=== PATIENT | male | born 1965 | race American Indian/Alaskan Native ===

== ENCOUNTER 2017-02-26 16:23 | Emergency (ER) | payer OTHER ==
[2017-02-26] MEDS ORDERED: BOOSTRIX IM ONE (18:20)
[2017-02-26] MEDS ORDERED: NACL 0.9% IR ONE (18:20)
[2017-02-26] MEDS ORDERED: MOTRIN PO ONE (18:21)
--- NOTE | 2017-02-26 18:33 | Emergency Department Report ---
ED Extremity Problem HPI - General Chief complaint: Wound/Laceration Stated complaint: LAC RT ARM Time Seen by Provider: 02/26/17 18:15 Source: patient Mode of arrival: Ambulatory Limitations: No Limitations - History of Present Illness Initial comments: PT states he was rough housing with his brother and he fell on a vase. PT states the vase broke and he cut his arm. PT states he got worried when he was picking pieces of glass out of his arm. PT unsure if his TD vaccines is UTD Complaint: other (arm injury ) Onset/Timin -: Sudden, hour(s) Location: right History of Same: No Severity scale (0 -10): 0 Consistency: constant Improves with: nothing Associated Symptoms: denies other symptoms - Related Data Previous Rx's Medication Instructions Recorded Last Taken Type Acetaminophen/Codeine [Tylenol #3] 1 tab PO Q6H PRN #12 tab 02/26/17 Unknown Rx Cephalexin [Keflex] 500 mg PO Q6HR #40 capsule 02/26/17 Unknown Rx Allergies Allergy/AdvReac Type Severity Reaction Status Date / Time No Known Allergies Allergy Verified 02/26/17 16:49 ED Review of Systems ROS: Stated complaint: LAC RT ARM Other details as noted in HPI Comment: All other systems reviewed and negative Cardiovascular: denies: chest pain Gastrointestinal: other. denies: abdominal pain, nausea, vomiting Musculoskeletal: as per HPI Skin: as per HPI Neurological: denies: numbness, paresthesias ED Past Medical Hx - Past Medical History Previous Medical History?: No - Surgical History Past Surgical History?: No - Family History Family history: no significant - Social History Smoking Status: Current Every Day Smoker Substance Use Type: Alcohol - Medications Home Medications: Home Medications Medication Instructions Recorded Confirmed Last Taken Type Acetaminophen/Codeine [Tylenol #3] 1 tab PO Q6H PRN #12 tab 02/26/17 Unknown Rx Cephalexin [Keflex] 500 mg PO Q6HR #40 capsule 02/26/17 Unknown Rx ED Physical Exam - General Limitations: No Limitations General appearance: alert, in no apparent distress - Head Head exam: Present: atraumatic, normocephalic, normal inspection - Eye Eye exam: Present: normal appearance. Absent: conjunctival injection - ENT ENT exam: Present: normal exam, normal external ear exam - Neck Neck exam: Present: normal inspection, full ROM. Absent: tenderness - Respiratory Respiratory exam: Present: normal lung sounds bilaterally. Absent: respiratory distress - Cardiovascular Cardiovascular Exam: Present: regular rate, normal rhythm - GI/Abdominal GI/Abdominal exam: Present: soft. Absent: tenderness - Extremities Exam Extremities exam: Present: full ROM, tenderness - Expanded Upper Extremity Exam Right Shoulder Exam: Present: normal inspection, full ROM. Absent: tenderness Upper Arm exam: Present: tenderness, swelling, laceration, ecchymosis. Absent: crepidus, erythema Elbow exam: Present: normal inspection, full ROM. Absent: tenderness Vascular: Present: normal capillary refill, radial pulse. Absent: vascular compromise - Back Exam Back exam: Present: normal inspection - Neurological Exam Neurological exam: Present: alert, oriented X3 - Psychiatric Psychiatric exam: Present: normal affect, normal mood - Skin Skin exam: Present: warm, dry, other ED Course Vital Signs 02/26/17 02/26/17 02/26/17 16:45 18:57 22:49 Temperature 99.2 F 99.7 F H Pulse Rate 107 H 105 H Respiratory 17 16 18 Rate Blood Pressure 117/79 Blood Pressure 156/86 [Left] O2 Sat by Pulse 98 99 Oximetry - Reevaluation(s) Reevaluation #1: 02/26/17 20:24 multiple pieces of ceramic removed from wound to R arm. repeat films ordered to evaluate for residual fb. Reevaluation #2: 02/26/17 22:18 pt tolerated suture repair well. - Laceration /Wound Repair Right Upper Distal Arm Wound Location: upper extremity Wound Length (cm): 6 Wound's Depth, Shape: superficial, linear Wound Explored: no foreign body removed Irrigated w/ Saline (ccs): 100 Betadine Prep?: Yes Anesthesia: Lidocaine w/ Epi Volume Anesthetic (ccs): 6 Wound Debrided: minimal Wound Repaired With: sutures Suture Size/Type: 4:0, nylon Number of Sutures: 9 Layer Closure?: Yes Deep Layer Suture Size/Type: 4:0 Number Deep Layer Sutures: 2 Sterile Dressing Applied?: Yes Right Upper Posterior Arm Wound Location: upper extremity (R arm ) Wound Length (cm): 10 Wound's Depth, Shape: into muscle, irregular, flap, contused tissue Wound Explored: after repeat film, more fbs removed. Irrigated w/ Saline (ccs): 500 Betadine Prep?: Yes Anesthesia: Lidocaine w/ Epi Volume Anesthetic (ccs): 10 Wound Debrided: minimal Wound Repaired With: sutures Suture Size/Type: 4:0 Number of Sutures: 23 Deep Layer Suture Size/Type: 3:0 Number Deep Layer Sutures: 10 Sterile Dressing Applied?: Yes Progress: multiple pieces of small ceramic removed and irrigated out. pt was sent for repeat xrs, which showed less fb. pt's skin was cleansed with betadine and lidocaine with epi was used to anaesthetize the area. The site was explored again and more small pieces of ceramic were removed. dr delong evaluated wound prior to laceration repair. laceration was not closed until no visualized fb seen. PT aware there is a chance that small fb could remain. pt aware he will need close follow up. pt given strict return precautions. - Pulse Oximetry Interpretation Digit-Finger Initial Pulse Oximetry Readin Actions Taken: none ED Medical Decision Making - Radiology Data Radiology results: report reviewed RUE - No fx - Differential Diagnosis laceration, fb, Critical Care Time: No Critical care attestation.: If time is entered above; I have spent that time in minutes in the direct care of this critically ill patient, excluding procedure time. ED Disposition Clinical Impression: Laceration of right upper arm with foreign body Qualifiers: Encounter type: initial encounter Qualified Code(s): S41.121A - Laceration with foreign body of right upper arm, initial encounter Disposition: DISCHARGED TO HOME OR SELFCARE Is pt being admited?: No Does the pt Need Aspirin: No Condition: Stable Instructions: Suture Care (ED), Laceration (ED), Soft Tissue Foreign Body (ED) , Absorbable Suture Care (ED) Additional Instructions: No driving or ETOH after Tylenol #3 Follow up with ORTHO in 3-5 days Suture removal in 10- 14 days REturn to ED if you develop redness, swelling, drainage or fevers Prescriptions: Acetaminophen/Codeine [Tylenol #3] 1 tab PO Q6H PRN #12 tab PRN Reason: Pain , Severe (7-10) Cephalexin [Keflex] 500 mg PO Q6HR #40 capsule Referrals: PRIMARY CARE, [Primary Care Provider] - 3-5 Days ABRAHAM BIRMINGHAM MD [Staff Physician] - 3-5 Days ROYER MONTEIRO MD [Staff Physician] - 3-5 Days NESTOR SERRANO MD [Staff Physician] - 3-5 Days [facility] [Outside] - 3-5 Days [facility] [Outside] - 3-5 Days Forms: Work/School Release Form(ED) Time of Disposition: 22:26
--- NOTE | 2017-02-26 18:59 | XRay Report ---
FINAL REPORT EXAM: XR HUMERUS 2 RT HISTORY: R arm injury TECHNIQUE: 2 views of the right humerus PRIORS: None. FINDINGS: Dorsal olecranon degenerative enthesopathy size is moderate. There is smoothly marginated lucency within the enthesophyte, likely chronic. Degenerative change of the elbow and shoulder. Smoothly marginated nonspecific small sclerotic focus in the humeral head may be a bone island. Intact appearing humerus. No definite acute fracture or dislocation. IMPRESSION: No definite radiographic evidence of acute skeletal pathology
[2017-02-26] MEDS ORDERED: XYLOCAINE 1%/ EPI 1:100,000 INFILTRATI NR (19:00)
--- NOTE | 2017-02-26 21:28 | XRay Report ---
FINAL REPORT EXAM: XR HUMERUS 2 RT HISTORY: after fb removal COMPARISON: February 26, 2017. FINDINGS: Two views of right humerus obtained. No acute fracture. In the soft tissues at the mid aspect of the humerus there are 3 faint radiopaque structures. Each is linear configuration ranging in size between 3 and 5 millimeters in greatest length. There are small pockets a gas at its margin. Overall number of foreign bodies is decreased from earlier exam. IMPRESSION: Partial removal radiopaque foreign bodies in the soft tissues at the mid aspect of the humerus. No acute fracture.
[2017-02-26] MEDS ORDERED: TRIPLE ANTIBIOTIC TP ONE (22:15)
[2017-02-26] MEDS ORDERED: CORTISPORIN TP SCH (22:35)
[2017-02-26 23:02] VITALS: BP 156/86
== END 2017-02-26 22:53 | disposition home or self-care (01) ==
LOC: ED 16:23
DX: S41.121A Laceration with foreign body of right upper arm, initial encounter (principal); F17.200 Nicotine dependence, unspecified, uncomplicated; W26.8XXA Contact with other sharp object(s), not elsewhere classified, initial encounter; Y93.89 Activity, other specified; Y99.8 Other external cause status; Y92.89 Other specified places as the place of occurrence of the external cause
CPT/HCPCS: 90471; 90715; A6250

== ENCOUNTER 2017-03-28 12:31 | Emergency (ER) | payer SELFPAY ==
--- NOTE | 2017-03-28 13:30 | Emergency Department Report ---
Suture/Staple Removal - HPI Chief Complaint: Laceration/Recheck/Suture Stated Complaint: STITCHES REMOVED Time Seen by Provider: 03/28/17 12:58 When Sutures or [place] Placed: >14 Days Ago Wound Location: R upper ext ED Review of Systems ROS: Stated complaint: STITCHES REMOVED Other details as noted in HPI Comment: All other systems reviewed and negative Constitutional: denies: chills, fever Respiratory: denies: shortness of breath, SOB with exertion, SOB at rest Cardiovascular: denies: chest pain Musculoskeletal: other (denies R arm pain, or weakness. PT states he has been doing pushups without problems. ) Skin: other (denies fevers or chills, no drainage from sutures. PT's states that she has seen pt try and remove his own sutures. ). denies: change in color Neurological: denies: headache, weakness, numbness, paresthesias Psychiatric: anxiety (pt states he is anxious about having sutures removed. ) ED Past Medical Hx - Past Medical History Previous Medical History?: No - Surgical History Past Surgical History?: No - Social History Smoking Status: Current Every Day Smoker Substance Use Type: Alcohol - Medications Home Medications: Home Medications Medication Instructions Recorded Confirmed Last Taken Type Acetaminophen/Codeine [Tylenol #3] 1 tab PO Q6H PRN #12 tab 02/26/17 Unknown Rx Cephalexin [Keflex] 500 mg PO Q6HR #40 capsule 02/26/17 Unknown Rx Suture Removal Exam - Exam General: Vital signs noted. No distress. Alert and acting appropriately. Wound: No Pathologic Erythema, No Tenderness, No Drainage, No Pus, No Wound Dehiscence Other Systems: PT is tachycardic, regular rhythm lungs cta kee PT has full ROM of R shoulder and Elbow. no tenderness to suture site. All other systems reviewed and are unremarkable. ED Course Vital Signs 03/28/17 12:36 Temperature 98.6 F Pulse Rate 123 H Respiratory 16 Rate Blood Pressure 152/107 O2 Sat by Pulse 100 Oximetry Vital Signs 03/28/17 03/28/17 03/28/17 12:36 13:39 15:31 Temperature 98.6 F 97.9 F Pulse Rate 123 H 117 H 92 H Respiratory 16 18 18 Rate Blood Pressure 152/107 Blood Pressure 151/98 140/70 [Left] O2 Sat by Pulse 100 98 98 Oximetry - Reevaluation(s) Reevaluation #1: 03/28/17 Repeat VS improved. - Pulse Oximetry Interpretation Digit-Finger Initial Pulse Oximetry Readin Actions Taken: none ED Recheck MDM - Differential Diagnosis Wound Recheck, Suture/Staple Removal Critical Care Time: No Critical care attestation.: If time is entered above; I have spent that time in minutes in the direct care of this critically ill patient, excluding procedure time. ED Disposition Clinical Impression: Visit for suture removal Disposition: TO HOME OR SELFCARE Is pt being admited?: No Does the pt Need Aspirin: No Condition: Stable Instructions: Suture Removal (ED) Additional Instructions: Follow up with ORTHO as needed Follow up with PCP for bp recheck in the next 2-3 days Return to ED if worsening or concerns Referrals: PRIMARY CARE, [Primary Care Provider] - 3-5 Days SKY HUDSON MD [Staff Physician] - 3-5 Days BRIANA GAO MD [Staff Physician] - 3-5 Days [facility] [Outside] - 3-5 Days [facility] [Outside] - 3-5 Days Forms: Work/School Release Form(ED) Time of Disposition: 15:19
[2017-03-28 15:32] VITALS: BP 140/70
== END 2017-03-28 15:32 | disposition home or self-care (01) ==
LOC: ED 12:31
DX: S41.111D Laceration without foreign body of right upper arm, subsequent encounter (principal)
CPT/HCPCS: 99282